=== PATIENT | male | born 1985 | race American Indian/Alaskan Native ===

== ENCOUNTER 2019-05-20 14:15 | Emergency (ER) | payer OTHER ==
[~2019-05-20] VITALS: Ht 185.4 cm; Wt 122.7 kg
[2019-05-20] MEDS ORDERED: bacitracin 15gm ointment TP ONE (14:45)
[2019-05-20] MEDS ORDERED: TETanus/Pertussis (Acell)/Diphther VAC/PF (Tdap-Adult) 0.5ml syringe IM ONE (14:45)
[2019-05-20] MEDS ORDERED: LIDOcaine 1% 30ml preserv. free vial IJ ONE (14:45)
[2019-05-20] MEDS ORDERED: CEPH-572 PO (15:43)
[2019-05-20] MEDS ORDERED: HYDR-4353 PO (15:43)
[2019-05-20 16:28] VITALS: BP 159/113
== END 2019-05-20 16:45 | disposition home or self-care (01) ==
LOC: ER 14:15
DX: S62.633A Displaced fracture of distal phalanx of left middle finger, initial encounter for closed fracture (principal); S61.213A Laceration without foreign body of left middle finger without damage to nail, initial encounter; Z79.2 Long term (current) use of antibiotics; Z79.899 Other long term (current) drug therapy; W26.8XXA Contact with other sharp object(s), not elsewhere classified, initial encounter; Y93.89 Activity, other specified; Y92.89 Other specified places as the place of occurrence of the external cause; Y99.8 Other external cause status
CPT/HCPCS: 12001; 99283

== ENCOUNTER 2020-04-06 08:10 | Day surgery (SDC) | payer OTHER ==
[~2020-04-06] VITALS: Ht 185.4 cm; Wt 108.1 kg
[~2020-04-06 08:10] MED LIST: BUPIVAcaine/PF 2.5mg/ml (0.25%) 10ml vial ONE; IBUP-1984 PO; ceFAZolin 2gm in dextrose, iso 50 ML IV ONE; famotidine 20mg tablet PO ONE; ringers solution, lacted 1,000 ML IV SCH
[2020-04-06] MEDS ORDERED: LIDOcaine 0.5% (5mg/ml) 50ml vial ONE (09:22)
[2020-04-06] MEDS ORDERED: diazepam 5mg tablet PO ONE (09:27)
[2020-04-06] MEDS ORDERED: ringers solution, lacted 1,000 ML IV SCH (10:03)
[2020-04-06] MEDS ORDERED: meperidine/PF 25mg/ml syringe IV PRN ×3 (10:05)
[2020-04-06] MEDS ORDERED: acetaminophen 1,000mg/100ml IV 100 ML IV PRN (10:05)
[2020-04-06] MEDS ORDERED: ketorolac trometh. 30mg/ml inj. IV ONE (10:05)
[2020-04-06] MEDS ORDERED: morphine 2 MG/ML inj. syringe IV PRN (10:05)
[2020-04-06] MEDS ORDERED: proCHLORperazine 10 MG/2 ml inj IV PRN (10:05)
[2020-04-06] MEDS ORDERED: ondansetron/PF 4mg/2ml inj IV PRN (10:05)
[2020-04-06] MEDS ORDERED: morphine 4 MG/ML inj SYRINge IV PRN (10:05)
[2020-04-06] MEDS ORDERED: MIDAZolam 5mg/5ml vial ONE (10:16)
[2020-04-06] MEDS ORDERED: fentaNYL/PF 50MCG/1 ML 2ML syringe ONE (10:16)
[2020-04-06 10:22] VITALS: BP 139/84
[2020-04-06 10:24] VITALS: BP 139/84
[2020-04-06] MEDS ORDERED: propofol inj 20 ML IV ONE ×2 (10:28)
[2020-04-06] MEDS ORDERED: LIDOcaine 2% 5ml jelly ONE (10:33)
[2020-04-06 11:10] VITALS: BP 146/102
--- NOTE | 2020-04-06 11:10 | NUR ---
Received from OR via [facility], accompanied by Anesthesiologist DR QUINN and report given by Anesthesiolgist. PATIENT A&OX4, DENIES PAIN, V/S WNL, NEUROVASCULAR CHECKS INTACT, 20G PIV Right forearm, SCD ON, DRESSING TO LEFT HAND/WRIST CDI ELEVATED WITH ICEBAG APPLIED. Nasal airway removed within two minutes of arrival, all VS remain stable and O2 sats 97% on RA after mask taken off.
[2020-04-06 11:20] VITALS: BP 120/78
[2020-04-06 11:30] VITALS: BP 119/98
[2020-04-06 11:40] VITALS: BP 118/79
--- NOTE | 2020-04-06 11:45 | NUR ---
Spoke with MD about pt's HR which sometimes runs low 40s and very occasionally hits 38 and comes back up to 40s. Pt sitting up talking, BP stable and no symptoms of dizziness. Preop HR was 67. When relayed to MD he states still okay to discharge based on no cardiac history and young healthy male.
--- NOTE | 2020-04-06 12:00 | NUR ---
PATIENT A&OX4, DENIES PAIN, V/S WNL, NEUROVASCULAR CHECKS INTACT, 20G PIV LUE D/C, SCD OFF, DRESSING TO LEFT HAND/WRIST CDI ELEVATED WITH ICEBAG APPLIED. I HAVE REVIEWED D/C INSTRUCTIONS WITH PATIENT AND FAMILY at vehicle again AND THEY HAVE VERBALIZED UNDERSTANDING. [employer] SENT HOME [facility]IH PATIENT FOR DRSG CHANGES. PATIENT D/C HOME WITH ALL BELONGINGS AND FAMILY GAVE TRANSPORT HOME. PT HAS PAIN MEDS ALREADY FILLED FROM OFFICE.
== END 2020-04-06 12:00 | disposition home or self-care (01) ==
LOC: PAS 08:10
PROVIDERS: ATTEND Orthopaedic Surgery Hand Surgery
DX: M24.542 Contracture, left hand (principal); K21.9 Gastro-esophageal reflux disease without esophagitis; Z98.890 Other specified postprocedural states; Z87.891 Personal history of nicotine dependence; Z79.899 Other long term (current) drug therapy; Z82.49 Family history of ischemic heart disease and other diseases of the circulatory system; Z83.3 Family history of diabetes mellitus; Z11.59 Encounter for screening for other viral diseases
CPT/HCPCS: 26440; 36415; 82948; J2001; J2250; J2704; J3010; J3490; U0003; A4215; A4618; J7120